=== PATIENT | male | born 1950 | race Caucasian/White ===

== ENCOUNTER 2020-01-31 17:26 | Inpatient (IN) | payer OTHER, BC ==
[~2020-01-31] VITALS: Ht 177.8 cm; Wt 100.3 kg
--- NOTE | ~2020-01-31 | D ---
[facility] [place] [address] DISCHARGE SUMMARY Name: RUBEN CAR Room #: 519A-A [facility] IN M.R.#: [id number] Admission: 01/31/20 Attend Phys: Blaise Eduardo DO Discharge: 02/20/20 Date of : 46 Report #: [id number] THIS REPORT FOR: cc: LORY - Kelsey family physician/PCP LORY - No family physician/PCP Blaise Eduardo DO ~ THIS REPORT FOR: //name// CC: Blaise HENLEY physician/PCP DATE OF SERVICE: 02/20/2020 INPATIENT PSYCHIATRIC DISCHARGE SUMMARY ATTENDING PHYSICIAN: Blaise Eduardo DO RESIDENT CARE MANAGER AT THE TIME OF DISCHARGE: Deloris Bettencourt M.D. DISCHARGE DIAGNOSES: Includes: 1. 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 2. Idiopathic Parkinson's disease. ADDITIONAL DIAGNOSES: 1. Medically would be hypertension. 2. Chronic kidney disease, stage 3. 3. Osteoarthritis. 4. Weakness, likely from Parkinson disease. DISCHARGE PLAN: The patient is discharged to [facility]. Psychiatric medical care to be provided by receiving facility. DISCHARGE DIET: Regular. ACTIVITY LEVEL: As tolerated. The patient does require 24/7 care and assistance due to ____ elopement risk. DISCHARGE MEDICATIONS: Are as follows: Tamsulosin 0.8 mg p.o. daily for BPH, Lovenox 40 mg subcutaneous at bedtime for prevention of deep venous thrombosis, atorvastatin 40 mg p.o. at bedtime for hyperlipidemia, Coreg 25 mg p.o. b.i.d. for hypertension, hold if systolic blood pressure is less than 100, amlodipine 5 mg p.o. b.i.d. for hypertension, again hold again hold if BP is less than 100, Cozaar 50 mg p.o. daily for hypertension, renal protection, aspirin 81 mg oral daily for heart protection, gabapentin 300 mg capsules 3 times a day, we are giving it to him at 9:00 a.m., 3:30 p.m., and 2100 hours for pain and mood [facility] [address] [place] [address] DISCHARGE SUMMARY Name: JOSEPRUBEN Room #: 519A-A [facility] IN [facility].#: [id number] Admission: 01/31/20 Attend Phys: Blaise Eduardo DO Discharge: 02/20/20 Date of : 46 Report #: [id number] stabilization. First antipsychotic he takes quetiapine fumarate, which is Seroquel 62.5 mg orally at 0900, 0330, and 2100 hours. His Sinemet regimen, which I adjusted per Dr. Chepe Branham's instruction is 25/100 ER tabs 2 tabs p.o. at 0800, 1530, 2300 hours. He also should take finasteride 5 mg p.o. daily at noon for BPH. He takes cyanocobalamin, paroxetine, vitamin called Folbee 1 each p.o. daily and multivitamin oral daily. I do not recommend any benzodiazepines for him. I do not recommend resuming Nuplazid. LABORATORY DATA: This admission, most recently on 02/20/2020, hematology: H and H 12.7 and 36.7, white count 9.5, platelets 7.5. Chemistry: Sodium 141, potassium 3.6, chloride 105, bicarbonate 30, anion gap 6, BUN 15, creatinine 1.1, estimated GFR 66, glucose 105, calcium 8.8, phosphorus 3.4, magnesium 2.2, total bilirubin 0.7, AST 20, ALT 6, alkaline phosphatase 78, total protein 6.4, albumin absolutely low at 2.7. Vitamin B12 level high at 191. Urinalysis is negative. Toxicology positive for benzodiazepines on admission. COVID-19 PCR done on 02/19/2020 was negative. REASON FOR ADMISSION: Back in early January is as follows, a 69-year-old male who came from the [facility] due to reported sexual aggressiveness, aggressive behavior, general emotional lability, and hallucinations. HOSPITAL COURSE: The patient was admitted to Geriatric Psychiatry Unit. The patient's daughter, Liya, who was very involved as well as his . The patient is incapacitated for persons with higher level healthcare living decisions. DPOA has enacted. The patient had been on a Nuplazid previously. It was discontinued. Seroquel was started with a slow titration. Spoken to Dr. Chepe Branham, Movement Disorders neurologist. He had been moving him from a variable 4-kqeu-k-day Sinemet regimen to 3 times a day ER. With the antipsychotic, they adjusted Parkinson's medications in the therapeutic milieu, the agitation improved. There was virtually no sexual aggressiveness noted. There was some delay as the family did not want the [facility] setup and wanted more of a larger memory care facility for the ____, so I would say the last week to 10 days or so was working on that, which was eventually achieved. Vital signs on the day of discharge, temperature 36.7, pulse 78, respirations 16, BP 118/72, O2 sat 93%, BMI of 31.7, weight 100.235 kilos, height 177.8 cm. MENTAL STATUS EXAMINATION: This is a well-developed, well-appearing male, not exclusively nonambulatory, but is quite limited. Attention limited. Concentration limited. Speech slow. Mask-like faces. Thought process linear at times. Thought content, poverty of thought. Fairly no psychomotor agitation. Some psychomotor retardation. Denied SI or HI. Denied auditory, visual, or tactile hallucinations. Memory is formally tested and is in the single digit range. Insight impaired, judgment impaired. Fund of knowledge well below average. [facility] [address] [place] [address] DISCHARGE SUMMARY Name: RUBEN CAR Room #: 519A-A DIS IN .R.#: [id number] Admission: 01/31/20 Attend Phys: Blaise Eduardo DO Discharge: 02/20/20 Date of : 46 Report #: [id number] PROGNOSIS: For this patient is guarded to poor given his advanced Parkinson's disease and difficulties accompanying that. By: 1815 12 Blaise Eduardo DO /nt
[2020-01-31 17:29] VITALS: BP 131/78
[2020-01-31 18:13] LABS: ABSOLUTE NEUTROPHILS 4.3 thou/uL (1.4-8.2); BASOPHILS 0.8 % (0.0-2.0); EOSINOPHILS 4.6 % (0.0-3.0); HEMATOCRIT 39.9 % (42.0-52.0); HEMOGLOBIN 13.9 gm/dL (14.0-18.0); LYMPHOCYTES 19.9 % (24.0-44.0); MCH 30.7 pg (26.0-34.0); MCHC 34.8 g/dL (28.0-37.0); MCV 88.2 fL (80.0-100.0); PLATELET COUNT 193 thou/uL (150-400); POLYS 67.7 % (36.0-66.0); RBC 4.52 mil/uL (4.50-6.00); RDW 13.7 % (10.5-14.5); WBC 6.3 thou/uL (4.0-11.0)
[2020-01-31 18:26] LABS: CALCIUM 8.5 mg/dL (8.5-10.1); CREATININE 1.4 mg/dL (0.7-1.3); POTASSIUM 3.8 mmol/L (3.5-5.1)
[2020-01-31 18:33] LABS: ALBUMIN 3.3 g/dL (3.4-5.0); TOTAL BILIRUBIN 0.7 mg/dL (0.2-1.0); TOTAL PROTEIN 6.2 g/dL (6.4-8.2)
[2020-01-31] MEDS ORDERED: NORVASC 2.5 MG2.5 M1 PO (19:16)
[2020-01-31] MEDS ORDERED: ALPRAZOLAM XR3 MG PO ×2 (19:16→19:33)
[2020-01-31] MEDS ORDERED: CHILDREN'S ASPI81 M1 PO (19:17)
[2020-01-31] MEDS ORDERED: LIPITOR 20 MG T20 M1 PO (19:17)
[2020-01-31] MEDS ORDERED: CARBIDOPA/LEVO PO ×4 (19:18→19:22)
[2020-01-31] MEDS ORDERED: CARVEDILOL25 MG PO (19:23)
[2020-01-31] MEDS ORDERED: DEPLIN PO (19:24)
[2020-01-31] MEDS ORDERED: PROSCAR 5MG TABL5 M1 PO (19:25)
[2020-01-31] MEDS ORDERED: FOLBEE TABLET1 EACH PO (19:26)
[2020-01-31] MEDS ORDERED: NEURONTIN 300M300 M2 PO (19:26)
[2020-01-31] MEDS ORDERED: METFORMIN PO (19:28)
[2020-01-31] MEDS ORDERED: MELOXICAM15 MG PO (19:28)
[2020-01-31] MEDS ORDERED: LISINOPRIL2.5 MG PO (19:28)
[2020-01-31] MEDS ORDERED: SUPER THERAVIT1 EACH PO (19:29)
[2020-01-31] MEDS ORDERED: NUPLAZID34 MG PO (19:29)
[2020-01-31] MEDS ORDERED: REMERON15 M2 PO (19:29)
[2020-01-31] MEDS ORDERED: SEROQUEL 25 MG25 MG PO (19:30)
[2020-01-31] MEDS ORDERED: FLOMAX0.4 MG PO (19:30)
[2020-01-31] MEDS ORDERED: PAIN RELIEVER500 MG PO (19:32)
[2020-01-31] MEDS ORDERED: BRINTELLIX20 MG PO (19:32)
[2020-01-31] MEDS ORDERED: LAXATIVE SUPPOS10 MG RECTAL (19:34)
[2020-01-31] MEDS ORDERED: CARBAMIDE PEROXIDE EA. EYE (19:35)
[2020-01-31] MEDS ORDERED: [UNRECOGNIZED DRUG - OTHER] TOP (19:36)
[2020-01-31] MEDS ORDERED: TROLAMINE TOP (19:36)
[2020-01-31] MEDS ORDERED: GERI-LANTA PO (19:38)
[2020-01-31] MEDS ORDERED: MILK OF MAG PO (19:41)
[2020-01-31] MEDS ORDERED: MECLIZINE HCL25 M1 PO (19:41)
[2020-01-31 20:09] LABS: AMP/METHAMP Negative (Negative); BARBITURATES Negative (Negative); BENZODIAZEPINES POSITIVE (Negative); COCAINE Negative (Negative); METHADONE Negative (Negative); OPIATES Negative (Negative); PCP Negative (Negative)
[2020-01-31 20:10] LABS: URINE BILIRUBIN NEGATIVE (Negative); URINE BLOOD NEGATIVE (Negative); URINE CLARITY CLEAR; URINE COLOR YELLOW; URINE GLUCOSE-RANDOM* NEGATIVE (Negative); URINE KETONES NEGATIVE (Negative); URINE LEUKOCYTES-REFLEX NEGATIVE (Negative); URINE NITRITE-REFLEX NEGATIVE (Negative); URINE PROTEIN (DIPSTICK) NEGATIVE (Negative); URINE SPECIFIC GRAVITY 1.015 (1.005-1.035)
--- NOTE | 2020-01-31 21:27 | NUR ---
Pt admitted to unit from ED @ 2029. [facility] et was assisted to bed by ED staff et this nurse. Pt was extremely unsteady on feet et did not bear weight well. Pt will need to use w/c due to high fall risk. Pt's B/P was elevated in ED et he was given med to decrease. Pt's B/P upon arrival was 190/97 but has gone down now to 144/83. Health assessment with no abnormalities noted at present time. Pt was admitted for physical aggression, depression, threatening, and exit-seeking behaviors. No behaviors noted or reported from ED or from admission to unit. Pt currently resting in bed with eyes closed. Will continue to monitor per protocol.
[2020-02-01 01:07] VITALS: BP 144/83
--- NOTE | 2020-02-01 05:29 | NUR ---
Pt admitted to unit @ 2029 this shift. Pt calm et cooperative at admission. Became restless throughout the noc et called out for daughter several times. Pt continues to be confused et is currently oriented to person only. Pt used the urinal with assistance through the noc. Denies SI/HI. Currently resting in bed with eyes open. Will continue to monitor per protocol.
[2020-02-01 07:40] VITALS: BP 136/81
--- NOTE | 2020-02-01 08:17 | EKG ---
[facility] [place] [address] [place] [address] ELECTROCARDIOGRAM REPORT Name: RUBEN CAR Room #: [facility]-A ADM IN M.R.#: [id number] Admission: 01/31/20 Attend Phys: Blaise Eduardo DO Discharge: Date of : 46 Report #: [id number] THIS REPORT FOR: cc: LORY - No family physician/PCP LORY - No family physician/PCP Bridger Pastrana MD [facility] ~ THIS REPORT FOR: //name// [facility] ED Test Date: 2020-01-31 Test Time: 17:53:33 Pat Name: RUBEN CAR Department: Room: [facility] Gender: M Supervisor Contact Lens: yoselin : 1950 Requested By: Rodolfo Hutchinson Order Number: [id number] MD: Bridger Pastrana Measurements Intervals [place] Rate: 74 P: 33 PA: 158 QRS: 4 QRSD: 107 T: -11 QT: 389 QTc: 432 Interpretive Statements Sinus rhythm Ventricular premature complex Borderline T abnormalities, inferior leads Baseline wander in lead(s) V4 No previous ECG available for comparison Electronically Signed On 02-01-2020 8:16:38 CDT by Bridger Pastrana [email or web address] <ELECTRONICALLY SIGNED> By: Bridger Pastrana MD, [facility] 02/01/20 0816 1753 1753 Bridger Pastrana MD, [facility] /EPI
--- NOTE | 2020-02-01 09:37 | NUR ---
Sw attempted to speak with pt s DPALIZE Nickerson [phone] and there is no VM set up. Will try again later.
--- NOTE | 2020-02-01 10:48 | NUR ---
Pt's dght called back and left a VM Liya's number is [phone]. And his other [facility] Vidhya is [phone]. Jaylen spoke with Liya and set up a family meeting for 11:[address] tinoco
--- NOTE | 2020-02-01 12:53 | NUR ---
Graciela and Dr tinoco met [facility] liya at 11:30am. Dr tinoco provided an update. GRACIELA completed the intake assessment and TP. Liya provided phone number s for Dr Branham's nurse [phone] Wilfred Hernandez [phone]. Pt is expected to d/c back to [facility].
--- NOTE | 2020-02-01 17:32 | NUR ---
PATIENT WAS UP IN W/C IN DAYROOM WHEN CARE ASSUMED. PATIENT IS VERY CONFUSED, ORIENTED TO SELF ONLY. HE TOOK ALL MEDICATIONS WHOLE WITHOUT DIFFIFULTY. PATIENT IS EATING MEALS, AND DRINKING FLUID WELL. PATIENT DENIES SUICIDAL IDEATION, HE IS NOT COGNITIVE ENOUGH TO APPROPRIATELY RESPOND TO ASSESSMENT QUESTIONS DUE TO COGNITIVE IMPAIRMENT. PATIENT HAD A NON-INJURY FALL WHILE AMBULATING ON THE [facility]. ALL APPROPRIATE AURTHORITIES NOTIFIED BY STAFF. NO BRUISING , OR REDNESS NOTED. PATIENT IS PLACED ON 1:[address] JOHNSON. PATIENT IS CURRENTLY IN DAYROOM SITTING ON A WHEELCHAIR, CHAIR ALARM, LAPBUDDY, YELLOW SOCKS, AND YELLOW T-SHIRT IN PLACE. PATIENT DENIES HAVING PHYSICAL PAIN. AFFECT IS FLAT/ LUNTED, MOOD CALM. NO AGITATION OR AGGRESSIVE BEHAVIOR NOTED. PATIENT'S FACILITY BROUGHT SOME MEDICATION, MEDICATION LISTED ON THE PHARMACY BAG BY STAFF, AND SENT TO PHARMACY. NO SIGN OF ACUTE DISTRESS NOTED AT THIS TIME, WILL MONITOR FOR SAFETY.
[2020-02-01 20:50] VITALS: BP 154/99
--- NOTE | 2020-02-02 03:50 | NUR ---
02-01-20 CARE TRANSFERED 1914 OBSERVED PT IN DAY ROOM WITH 1:1 ORNAMENTAL METAL ERECTOR SITTING IN RECLINER WITH EYES OPEN, CALM. 2009 PT AAOX2, PT REMAINED CALM AND COOPERATIVE DURING NURSING ASSESSMENT. PT REPORTED HE WANTS TO GO HOME. PT DENIES SI/SH/HI/VAH. PT REPORTS BI-LAT LE PAIN SCALES AT 7 ON 0-10 SCALE. PT PAIN REASSES AND PT REPORTS 3 ON 0-10 SCALE. LATER ASSISTED PT INTO BED, AND POSITION OF COMFORT. DURING NURSING ROUNDS NOTED PT SUPINE RESTING WITH EYES CLOSED. OF NOTE, PLEASE REFER TO NURSING INTERVENTIONS FOR MORE INFORMAITON. ZERO ACUTE DISTRESS NOTED. WILL CONTINUE TO MONITOR PER PROCOTOL
[2020-02-02 07:15] VITALS: BP 153/87
--- NOTE | 2020-02-02 09:47 | NUR ---
0700 ASSUMED CARE OF PATIENT, PATIENT SITTING IN DAYROOM. PATIENT IS A 1:1 AND SITTER IS WITH HIM. PATIENT IS CALM AND COOPERATIVE. PATIENT EATING BREAKFAST WITH ASSISTANCE. MEDICATION TAKEN WHOLE WITHOUT DIFFICULTY. PATIENT SAT IN DAYROOM LISTENING TO GROUP. PATIENT ATTEMPTING TO GET UP ALONE, SITTER AT SIDE AND PATIENT SITS BACK DOWN. WILL CONTINUE TO OBSERVE.
--- NOTE | 2020-02-02 13:27 | NUR ---
PATIENT RESTING IN AGATHA CHAIR WITH EYES CLOSED, NO C/O PAIN, LUNG SOUNDS CLEAR, BS ACTIVE. PATIENT SITTING NEAR AREA OF CURRENT GROUP. PATIENT IS MOVING HAND AND MUMBLING WORDS TO THE CURRENT SONG BEING PLAYED. PATIENT ENJOYING MUSIC. PATIENT CALM AND COOPERATIVE. DENIES SI/HI. WILL CONTINUE TO OBSERVE
--- NOTE | 2020-02-02 14:04 | NUR ---
PATIENT REQUEST TO USE THE RESTROOM. ASSIST X2 TO BR, PATIENT WAS NOT ABLE TO VOID ATTHIS TIME. PATINT AMB BACK TO CHAIR FROM TOILET WITH ASSIST X2 AND GUIDANCE TO LIFT FEET TO WALK. PATIENT WOULD CLOSE EYES AND STOP MOVING FORWARD. PATIENT CALLING OUT MOTHERS NAME LOOKING FOR HIS MOTHER. LINING STRAP CLOSER ORIENTS PATIENT TO ENVIROMENT. PATIENT ALERT AND ORIENTED X1 TO SELF. PATIENT RESTING WITH EYES CLOSED IN AGATHA CHAIR.
--- NOTE | 2020-02-02 15:51 | NUR ---
Sw provided update over the telephone and sent FAX updates. Pt will likely be ready to d/c next week. Pt has a 1:1 for falls right now
--- NOTE | 2020-02-03 02:32 | NUR ---
02-02-20 CARE TRANSFERED AT 191 OBSERVED PT SITTING IN DAY ROOM WATCHING TV. 1954 PT AAOX3, TREMORS NOTED IN UE. PT CALM AND COOPERATIVE DURING NURSING ASSESSMENT. PT DENIES ANY PAIN AND SI/SH/HI/VAH AT THIS TIME. PT IS A X2 ASSIST AND APPROXIMATEL 2200 ASSISTED PT TO TOLIET, LARGE FORMED, BROWN BM WITH YELLOW URINE, THEN ASSISTED PT INTO CLEAN BRIEFS AND PT REQUESTED TO GET INTO BED. PT WAS PLACED IN POSITION OF COMFORT. APPROXIMATELY 2330 PT CALLING OUT TO HIS MOTHER, WHEN ORIENTATED PT TO WERE HE WAS PT STATED "I'am going to in here." PT WAS REASSURED THAT HE WAS GOING TO BE ALRIGHT AND PT REQUESTED TO GO TO DAY ROOM. APPROXIMATELY 0000 NOTED PT RESTING IN RECLINER WITH EYES CLOSED IN DAY ROOM. OF NOTE, PLEASE REFER TO NURSING INTERVENTIONS FOR MORE INFORMATION. ZERO S/S OF ACUTE DISTRES NOTED. WILL CONTINE TO MONITOR PER [facility] PROTOCOL.
[2020-02-03 08:35] VITALS: BP 155/98
--- NOTE | 2020-02-03 10:07 | NUR ---
0700 ASSUMED CARE OF PATIENT, PATIENT SITTING IN DAYROOM IN AGATHA CHAIR AT THAT TIME. PATIENT DOES NOT HAVE CHAIR ALRM IN PLACE PRODUCTION MAINTENANCE TECHNICIAN WILL GET THAT PUT ON. PATIENT HAS YELLOW SHIRT AND 1:1 REFRACTORY TILE HELPER AT CHAIR SIDE. PATIENT ASSISTED WITH BREAKFAST. MEDICATIONS TAKEN WHOLE WITHOUT DIFFICULTY. NO C/O PAIN, DENIES OTHER NEEDS AT THAT TIME. PATIENT ASSISTED TO RESTROOM BY 1:1 REFRACTORY TILE HELPER. PATIENT CALM AND COOPERTIVE. CHAIR ALARM PLACED UNDER PATIENT. 1010 PATIENT SITTING ON COUCH WITH EYES CLOSED WITH 1:1 SITTER. WILL CONTINUE TO OBSERVE.
--- NOTE | 2020-02-03 12:01 | NUR ---
Jaylen scheduled a family meeting using Zoom and provided Liya with a invite and link.
--- NOTE | 2020-02-03 13:35 | NUR ---
Graciela spoke with Liya and provided her with the linkk for the Zoom meeting. We spoke wabout the expectations of d/c and the concenrs xochitl alternate placement might be needed. GRACIELA provided her with education, support and resources to look for alterbate placement. Pt is still expected to d/c back there on Thu. GRACIELA then called and left a VM with Michaela GUTIERREZ at [facility] asking for a conference all with Liya and Graciela to discuss the needs of the pt.
--- NOTE | 2020-02-03 16:32 | NUR ---
Jaylen spoke with Virgil and discussed the d/c plans for next week. Jaylen also sent her an invitation to the Zoom meeting on Thursday at 10:30 am.
[2020-02-03 19:37] VITALS: BP 185/95
--- NOTE | 2020-02-04 05:07 | NUR ---
Assumed care of pt @ 1900. Pt calm et cooperative with flat affect this shift. Took medications whole without difficulty. Did not ambulate this shift but normally ambulates with assistance of walker. Socialized with peers in dayroom most of shift. B/P mildly elevated at beginning of shift but recheck was WNL. Health assessment with no abnormalities noted @ present time. Denies SI/HI. Currently resting in recliner in dayroom with eyes closed. Will continue to monitor per protocol.
[2020-02-04 05:54] LABS: ALBUMIN 3.6 g/dL (3.4-5.0); CALCIUM 9.4 mg/dL (8.5-10.1); CREATININE 1.6 mg/dL (0.7-1.3); PHOSPHORUS 4.1 mg/dL (2.5-4.9)
[2020-02-04 08:17] VITALS: BP 172/103
--- NOTE | 2020-02-04 09:18 | NUR ---
ASSUMED CARE AT 0700 THIS MORNING. PT. UP, DRESSED AND SITTING AT THE TABLE IN THE DINING ROOM HAVING COFFEE. HE APPEARS CONTENT. NO AGGRESSION NOTED. HE ATE BREAKFAST. HE TOOK HIS MEDICATIONS WITHOUT PROBLEMS NOTED. CALLED THE DPDOMENIC HERRMANN (DAUGHTER) TO INFORM HER WE NEEDED MORE TRINTILLEX. SHE STATED SHE WOULD WORK ON THAT.
[2020-02-04 10:54] VITALS: BP 172/103
[2020-02-04 13:14] VITALS: BP 144/86
[2020-02-04 20:11] VITALS: BP 141/86
--- NOTE | 2020-02-05 05:25 | NUR ---
Assumed care of pt @ 1900. Pt calm et cooperative with pleasant demeanor this shift. Pt talked with at beginning of shift et when asked if conversation went well, pt stated "no". When prompted further, pt did not respond. Took medications whole without difficulty. Ambulates halls with assistance of w/c. DAWNWOLI. Health assessment with no abnormalities noted at present time. Denies SI/Hi. Socialized with peers in dayroom until HS. Currently resting in recliner in dayroom with eyes closed. Will continue to monitor per protocol.
[2020-02-05 08:50] VITALS: BP 178/95
--- NOTE | 2020-02-05 13:32 | NUR ---
Mike was in the day room sleeping when I arrived on duty this AM. He awoke for breakfast amd ate a good potion of this meal. Meications were taken with apple sauce, all were taken. When Robert is asked a question his respons does not relate to matter at hand . He is alert x1 Lungs were clear x2 pedal pluse strong and equal. heart rate regular. All of his lunch was eaten. Robert had a call and had a very short conversation with them. Pt remains in the day roon in lougchair sleeping at this time.
[2020-02-05 13:48] VITALS: BP 178/95
[2020-02-05 13:58] VITALS: BP 178/95
--- NOTE | 2020-02-05 16:38 | NUR ---
Pt unable to participate in group due to cognitive deficit.
--- NOTE | 2020-02-05 18:34 | NUR ---
WHILE ATTEMPTING TO CHANGE THIS PT. THE SECOND TIME, HE STOOD UP AND STATED, "DO YOU WANT ME TO PUT IT IN?" THIS RN INFORMED HIM THIS WAS INAPROPRIATE.
[2020-02-05 19:20] VITALS: BP 181/90
[2020-02-05 21:00] VITALS: BP 181/90
--- NOTE | 2020-02-05 23:19 | NUR ---
Patient has become increasingly anxious. Stating "I'm just going to kill myself", "let me jump", "I'm going to hell". Attempting to disrobe, kicking legs, swinging arms. Did answer that he was anxious. Staff attempted to calm patient down x3. Offered water. Patient crushed the cup with his hand and refused to let go. PEDRO Ramirez, notified. Order obtained for Olanzapine 5mg IM stat. Medication administered with staff assist x3. Remains 1:1 while awake.
--- NOTE | 2020-02-06 03:02 | NUR ---
Assumed care of patient this pm shift. Patient sitting in the mileu in a reclining chair on 1 to 1 observation while awake. Patient appears confused and has difficulty answering basic questions. Patient is very sleepy at the start of the shift but as time went on he become more wakeful and increasingly anxious and agitated. Patient stated that he wants to go to hell and that he would jump. Patient redirected several times but agitation still increased. Nurse practitioner was called and patient recieved an IM injection to help relieve the anxiety. Patient is alert only to self. Patient denies pain. Patients assessment shows clear breath sounds, active bowel sounds, and s1 s2 heard with auscultation. We will continue with close observation.
[2020-02-06 06:31] LABS: CALCIUM 9.2 mg/dL (8.5-10.1); CREATININE 1.4 mg/dL (0.7-1.3); POTASSIUM 4.2 mmol/L (3.5-5.1)
[2020-02-06 07:20] VITALS: BP 171/93
--- NOTE | 2020-02-06 10:25 | NUR ---
Ignacio was in day room sleeping when I arrived on duty. Staff awoke him for Breakfast of which he ate most of it. Medications were given in apple sauce ,only the flow max was spit out and I was able to open the caplsel and give the dose as ordered in apple saucw. Robert is very easily angered and tries to strick back . His conversation to you is regarding s thought unrelated to the issue at hand. He remains 1:1 with lap marisol on. Lungs are clear x2, pedal pulse strong ,no edema at this time and heart sound normal. Appite is good, staff will regualarly check about voiding and bm's
[2020-02-06 19:15] LABS: URINE BILIRUBIN NEGATIVE (Negative); URINE BLOOD NEGATIVE (Negative); URINE CLARITY CLEAR; URINE COLOR YELLOW; URINE GLUCOSE-RANDOM* NEGATIVE (Negative); URINE KETONES NEGATIVE (Negative); URINE LEUKOCYTES NEGATIVE (Negative); URINE NITRITE NEGATIVE (Negative); URINE PROTEIN (DIPSTICK) NEGATIVE (Negative); URINE SPECIFIC GRAVITY 1.025 (1.005-1.035)
[2020-02-06 22:00] VITALS: BP 181/90
--- NOTE | 2020-02-07 02:42 | NUR ---
Assumed care of patient this pm shift. Patient sitting in the mileu. Patient speaks about things that may be from his past. Patient denies pain. Patient denies hi/si. Patients called during the evening and spoke with RN. RN spoke with patient and told him his had called and this seemed to make him happy. Patients affect is blunted. Patients assessment shows clear breath sounds, active bowel sounds, and s1 s2 heard with auscultation. Patient is not continent of bowel and bladder and wears a brief. Patient is alert and oriented to self only. We will continue to monitor per hospital policy.
[2020-02-07 09:05] VITALS: BP 102/59
[2020-02-07 10:51] VITALS: BP 181/87
[2020-02-07 10:59] VITALS: BP 181/87
[2020-02-07 11:04] VITALS: BP 187/87
--- NOTE | 2020-02-07 11:13 | NUR ---
1110 RESUMMED CARE FROM OVERNIGHT SHIFT THIS AM, PATIENT SOUND ASLEEP IN ROOM. PATIENT WAS NOT EASY TO AROUSE AND ATE BREAKFAST A LITTLE LATE. PATIENT TOOK MEDICATION WITHOUT INCIDENCE. PATIENTS ABDOMEN SOFT ROUND BOWEL SOUNDS PRESENT LUNGS CLEAR. PATIENT HAS A TREMOR IN RT HAND PATIENT IS ORIENTED TO SELF ONLY. PATIENT DENIES SI/HI/AH/VH AT PRESENT, PATIENT IS COOPERATIVE CALM PATIENT HAD A EPISODE OF ENURESIS THIS AM. WILL CONTINUE TO MONITOR PATIENT FOR SAFETY AND BEHAVIORS.
--- NOTE | 2020-02-07 11:58 | NUR ---
GRACIELA and Dr Eduardo met with family via virtual. Dr Eduardo reported on meds and meds change recomendations. This inlcuded concerns that [facility] may not be able to manage this pt in the future. GRACIELA sent a referra to [facility] per their erquest and followed it up with a phone call to Ly their intake [phone]. Family also reported that they will be looking into alternate placement per their own contacts and then emailing this worker with the names so the referral can be sent .
--- NOTE | 2020-02-07 15:03 | NUR ---
RT Progress Note- Mike' participation in the milieu and group activities remains limited d/t his impulsive behaviors and cognitive deficits. He has however been able to focus for extremely short periods- listening to music and ball kick.
[2020-02-07 19:34] VITALS: BP 83/39
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
--- NOTE | 2020-02-08 05:25 | NUR ---
Assumed care of pt @ 1900. Pt calm et cooperative this shift. No behaviors noted. Took medication whole in yogurt without difficulty. Ambulates with assistance of w/c. B/P very low this shift so B/P meds held per parameters. Pt was sedated for 0330 med so was marked as refused as unable to awaken to take his medication. Health assessment with no abnormalities noted at present time. Denies SI/HI but unsure as to if pt was completely understanding what was asked of him. Currently resting in bed with eyes closed. Will continue to monitor per protocol.
[2020-02-08 07:30] VITALS: BP 150/98
--- NOTE | 2020-02-08 13:07 | NUR ---
Jaylen received a VMa nd email from Liya vazquez and she requested that the referral be sent to [facility]. JAYLEN completed this task and emailed Liya a confirmaiton.
--- NOTE | 2020-02-08 13:52 | NUR ---
Mike , was siting up in chair when I arrived on duty this Am. Pt is more responsive, when spoken to with eyes open. alert x1, heart sound s clear and regular. Pedal pulse strong and no edema noted. Pt has not had a bm to day. client has earten ALL his food. nO OMPLAINTS VOICED AT THIS TIME.
[2020-02-08 19:55] VITALS: BP 140/74
[2020-02-08 20:30] VITALS: BP 140/74
--- NOTE | 2020-02-09 00:38 | NUR ---
PATIENT SAT UP IN WC AT TABLE IN DINING ROOM TONIGHT UNTIL BEDTIME. HE SPOKE WITH HIS ON PHONE. HE HAS BEEN CALM AND LESS IMPULSIVE TONIGHT. HE DID HAVE HS SNACK. NO SIGNS OF SI/HI/AVH TONIGHT. PATIENT IS A/O X 1-2. HE TOOK HIS MEDS CRUSHED IN PUDDING. HE DENIES PAIN. BED IN LOW POSITION AND BED ALARM IS ON. CONTINUING TO MONITOR.
[2020-02-09 10:01] VITALS: BP 145/83
--- NOTE | 2020-02-09 10:34 | NUR ---
GRACIELA spoke with [facility] and they are willing to consider this pt for placement. This should be for early next week. Expectations include no 1:1. no lap marisol and taking medications orally. GRACIELA johnson send updates on Thursday and f/u with [facility] Thursday.
--- NOTE | 2020-02-09 11:48 | NUR ---
Nutrition: Assessed for early day 6 LOS. Pt unavailable at time of visit to unit. Getting cleaned up/changed by METAL FABRICATION SUPERVISOR. Chart reviewed, noted to be A&O x1-2. Here for dementia w/ increased behavioral disturbances, psychosis. On a regular diet and eating well. Typically eating 75-100% of most meals, with a few at lower amounts of 30-60%. Overall, pt averaging 2/3 of meals per the last 19 recordings (only 1 meal refusal out of 19). On a MVI w/ minerals, B12, and folic acid supplementation. Last BM not documented since 02/03. REC adding scheduled bowel regimen. No other active nutrition problems identified. Deemed low nutrition risk, continue to follow for any changes in po trends.
--- NOTE | 2020-02-09 12:17 | NUR ---
0700 ASSUMED CARE OF PATIENT. PATIENT IN ROOM AT THAT TIME. 0800 PATIENT TO DAYROOM SITTING IN GERICHAIR. PATIENT WEARING YELLOW SHIRT, FALLS ARM BAND ON, YELLOW SOCKS IN PLACE. CHAIR ALARM NOT IN PLACE AND NO ALARM BOXES ARE AVAILABLE. PATIENT DENIES NEEDS AT THAT TIME. 0845 MEDICATION TAKEN WHOLE WITHOUT DIFFICULTY. PATIENT AWAKE AND ALERT. ORIENTED X1. PATIENT SITTING IN GERICHAIR AT THAT TIME. PATIENT DENIES SI/HI. NO GOAL VOICED, NO CONCERNS VOICED. WILL CONTINUE TO OBSERVE.
--- NOTE | 2020-02-09 15:49 | NUR ---
GRACIELA spoke at length with Liya this am to melinda d/c planning. It was decided that they like [facility] and that d/c would likely be next week and the expectations. Liya reported that she was very staisfied with this outcome.
[2020-02-09 19:36] VITALS: BP 117/70
[2020-02-09 20:40] VITALS: BP 117/70
--- NOTE | 2020-02-10 01:47 | NUR ---
PATIENT WAS QUIET IN DAYROOM BEFORE BED. HE HAD HS SNACK AND SAT AT TABLE IN HIS WC WITH CHAIR ALARM ON. PATIENT SPOKE TO HIS BY PHONE. HE IS A/O X 1. HE WAS ABLE TO ANSWER SIMPLE QUESTIONS FOR ME. HE DENIES PAIN. PATIENT TOOK MEDS CRUSHED IN YOGURT. PATIENT HAS AWAKENED CONFUSED 3 TIMES SO FAR TONIGHT. HE THINKS IT'S TIME TO GET UP AND GET DRESSED. HE USED BSC AND BACK TO BED BUT STILL CALLS OUT FOR HELP PERIODICALLY. PATIENT IS UP IN RECLINER AND MOVED TO DAYROOM AT THIS TIME. HE DENIES SI/HI/AVH. ROUTINE ROUNDS FOR STATUS AND SAFETY OF PATIENT.
--- NOTE | 2020-02-10 05:33 | NUR ---
PATIENT HAS BEEN UP HALF THE NIGHT SITTING ON CHAIR ALARM IN RECLINER IN THE DINING ROOM QUIETLY. OCCASIONALLY HE WILL TRY AND INSERT A RANDOM COMMENT INTO A CONVERSATION. HE HAS BEEN TOILETED THRU NIGHT AND IS INCONTINENT. PATIENT DENIES PAIN. A/0X1. ROUTINE ROUNDING TO ASSESS FOR SAFETY AND STATUS OF PATIENT.
[2020-02-10 07:56] VITALS: BP 151/100
--- NOTE | 2020-02-10 09:35 | NUR ---
0700 ASSUMED CARE OF PATIENT, PATIENT SITTING IN GERICHAIR IN DAYROOM AT THAT TIME. PATIENT DENIES NEEDS. AFTER BREAKFAST PATIENT SITTING IN CHAIR WAITING FOR GROUP TO START. MEDICATION TAKEN WHOLE WITHOUT DIFFICULTY, NO C/O PAIN. PATIENT SITTING QUIETLY AND CALLS OUT FOR . UNION ORGANISER ORIENTS PATIENT TO ENVIROMENT. PATIENT IS CALM AND COOPERATIVE.
[2020-02-10 19:36] VITALS: BP 151/77
--- NOTE | 2020-02-11 05:26 | NUR ---
Assumed care of pt @ 1900. Pt calm et cooperative this shift. Took medications whole in yogurt without difficulty. Ambulates via w/c. Socialized with peers in dayroom until HS. VSWNL. Health assessment with no abnormalities noted at present time. Denies SI/HI. Talked with on phone during shift et appeared to have a good conversation. Pt very lucid while on the phone with . Currently resting in bed with eyes closed. Will continue to monitor per protocol.
[2020-02-11 08:21] VITALS: BP 148/92
--- NOTE | 2020-02-11 10:04 | NUR ---
0700 ASSUMED CARE OF PATIENT, PATIENT SLEEPING IN BED AT THAT TIME. PATIENT TRANSFERED TO [facility] FOR BREAKFAST AND TAKEN TO DAYROOM. PATIENT AWAKE AND ALERT. ORIENTED X1. MEDICATION TAKEN WHOLE WITHOUT DIFFICULTY. PATIENT SITS QUIETLY AT TABLE. DENIES NEEDS AT THIS TIME.
[2020-02-11 19:48] VITALS: BP 125/77
--- NOTE | 2020-02-11 23:50 | NUR ---
Pt was in the dayroom at time of assessment. Pt oriented to self. Confused. Pt was calm and cooperative with assessment. Pt denies anxiety and/or depression. Pt took meds whole. Pt incontinent of bladder. Wears briefs. Pt is 2 person's assist. Pt currently in bed sleeping. Will continue to monitor.
[2020-02-12 09:06] VITALS: BP 167/91
--- NOTE | 2020-02-12 11:40 | NUR ---
Assumed care 0700. Denied complaints. Assisted to dining room bearing some weight in [facility]. Self feeds once food is cut up. Denies SI/HI/AH/VH.
--- NOTE | 2020-02-12 16:30 | NUR ---
called, given update, said daughter was to call him around dinnertime. He did have awareness that this was Father's Day. 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 He was reoriented that he was in the hospital but not totally convinced he was not going to work. He had an extra large BM several pounds worth.
[2020-02-12 19:58] VITALS: BP 173/79
[2020-02-13 07:15] VITALS: BP 149/92
[2020-02-13 10:14] VITALS: BP 147/92
[2020-02-13 10:31] VITALS: BP 149/92
--- NOTE | 2020-02-13 12:49 | NUR ---
GRACIELA spoke with Deidre Ferris at [place]. Renae inquired it Pt was still recieving a 2 person assist. GRACIELA confrimed that Pt does recieve a 1 to 2 person assist depending on the day. [facility] stated that could not accept Pt and Pt needs to make more progressive before they could accept. GRACIELA and Dr. Hayes contacted Pt's daughter/DPOA concerning the matter. Gave infomation about [facility] declining the Pt due to Pt needing 2 person assit at times. Family requested referals be sent to [facility].
[2020-02-13 13:18] LABS: CALCIUM 9.1 mg/dL (8.5-10.1); CREATININE 1.4 mg/dL (0.7-1.3); POTASSIUM 4.2 mmol/L (3.5-5.1)
--- NOTE | 2020-02-13 14:42 | NUR ---
1400 RESUMMED CARE THIS AM FROM OVERNIGHT SHIFT THIS AM, PATIENT QUIET IN ROOM. I GOT PATIENT UP DID HYGIENE AND TOOK PATIENT TO EAT BREAKFAST. PATIENT TOOK MEDICATION WITHOUT INCIDENCE. PATIENTS ABDOMEN SOFT ROUND BOWEL SOUNDS PRESENT LUNGS CLEAR. PATIENT DENIES SI/HI/AH/VH AT PRESENT PATIENT QUIET COOPERATIVE ORIENTED TIMES SELF ONLY. WILL CONTINUE TO MONITOR PATIENT FOR SAFETY AND BEHAVIORS.
--- NOTE | 2020-02-13 17:35 | NUR ---
GRACIELA sent referral to [facility]
--- NOTE | 2020-02-14 04:45 | NUR ---
02-13-20 CARE TRANSFERED AT 1915 OBSERVED PT SITTING IN DAY ROOM. 1999 PT PRESENTS TEARFUL AND ANXIOUS WAS ABLE TO COMFORT AND PT COOPERATIVE DURING NURSING ASSESSMENT. PT VSS RR EVEN AND NONLABORED ON RA. PT DENIES SI/SH/HI/VAH. PT REPORTS PAIN IN LOWER BACK SCORES AT 7. OF NOTE, PLEASE REFER TO NURSING INTERVENTIONS AND MAR FOR MORE INFORMATION. ZERO ACUTE MEDICAL OR EMOTIONAL DISTRESS NOTED AND WILL CONTINUE TO MONITOR PER [facility].
[2020-02-14 08:40] VITALS: BP 136/82
--- NOTE | 2020-02-14 08:46 | NUR ---
PT SITTING IN DINING ROOM. PT TOOK AM MEDS WITHOUT ANY ISSUES. PT TEARFUL THIS AM STATED HE DOESN'T HAVE ANY PAIN EXCEPT HIS HEART, HE STATED HE MISSES HIS FRIENDS. PT NEEDS ASSISTANCE WITH TRANSFERS. PT DOES STAND AT TIMES IN W/C. PT EASILY DIRECTED TO SIT BACK DOWN.
--- NOTE | 2020-02-14 10:20 | NUR ---
SW successfully faxed referrals to [facility] and updates to [facility].
--- NOTE | 2020-02-14 10:30 | NUR ---
CALLING AND WANTING TO TALK TO PT. PT DID TALK WITH HER ON THE PHONE, PT UNALBE TO HOLD PHONE TO HIS EAR, THIS SLITTING MACHINE FEEDER PLACED PHONE OVER HIS EAR SO HE COULD COMMUNICATE WITH HER.
--- NOTE | 2020-02-14 10:44 | NUR ---
RT Progress Note- Robert's participation in structured group time has been minimal d/t cognitive deficits and impulsive fall risk behaviors. He has been present in the milieu and observed working puzzles with staff at times. He does participate primarily in exercise groups when in group attendance. He has not displayed aggressive or agitated behavior during RT interactions.
[2020-02-14 11:35] VITALS: BP 136/82
--- NOTE | 2020-02-14 12:46 | NUR ---
GRACIELA returned the email to Liya Brunson and sent referrals to [facility] and [facility] and updates to [facility]
[2020-02-14 19:37] VITALS: BP 127/81
--- NOTE | 2020-02-14 23:46 | NUR ---
Care assumed of patient at 191: Patient seated in w/c in dayroom at start of shift. Patient alert and oriented to person only. Patient feels that we are at an arcade in [place], [place]. Patient forgetful and confused. Patient presents with flat affect. Appears sad and depressed. Appropriately interacting with staff. Denies SI/HI/AH/VH. Denies anxiety and depression. Spoke with his on the phone and appeared tearful afterwards. Patient states he misses her. Patient took HS medication whole with cup of water. Ate 100% HS snack. No agitation or aggression observed. Patient retired to bed rather late this evening. Patient was able to verbalize to staff when he was ready to lay down in bed. Patient incontinent of bladder. Cooperative with sander care and linen change. Patient was able to stand and transfer from w/c to bed with mod assist x1. Fairly good balance observed. Patient was able to fall asleep rather quickly once laying in bed and is resting quietly at this time.
[2020-02-15 08:20] VITALS: BP 153/91
[2020-02-15 09:19] VITALS: BP 153/91
--- NOTE | 2020-02-15 11:55 | NUR ---
Pt has been accepted at [facility] and will go skilled [facility] to transition. SW is setting this up for 02/16. SW left 2 VM for Farida at [facility].
--- NOTE | 2020-02-15 13:51 | NUR ---
GRACIELA spoke at length with Liya and her spouse about the d/c plans. This included whether pt can see his spouse , GRACIELA advised prince it. and how his transistion will take place. She also asked for a [facility] of HOSPITAL DNR to be scanned to her so she can sign it and have DR Eduardo sign it for kimberly pt d/c on Thursday.
--- NOTE | 2020-02-15 14:03 | NUR ---
Nutrition: Weekly follow up. Continues on a regular diet and eating well. Meal average = 79% per the last 17 recorded meals from 02/09 - 02/14 lunch. He has only refused/not wanted 1 meal during this past week. Has eaten 100% of the last 4/5 meals. Recent BM 02/13; has milk of mag available prn. Pt not interviewed this date given ongoing excellent po trends and noted to be A&O to person only with cognitive deficits/dementia. Weight is down 9# in the last 1.5 weeks from 225# on 01/31 to 216# on 02/10 despite eating adequately. Continues on a MVI w/ minerals, B12, and folic acid. Maintain low nutrition risk. SW secured spot in a memory care unit- discharged planned 02/16.
[2020-02-15 20:15] VITALS: BP 115/70
--- NOTE | 2020-02-16 01:11 | NUR ---
Care assumed of patient at 1915: Patient seated in w/c in dayroom at start of shift. Patient alert and oriented to person only. Patient states that current location is the warehouse. When re-oriented to location as the hospital, he states "oh, yeah". Patient pleasantly confused. No s/s of depression or tearfulness observed. Denies SI/HI/AH/VH. No aggression or agitation observed. Patient ate 100% HS snack. Took HS medication whole without difficulty. Patient was able to speak with his and daughter on the phone during the evening. Patient observed to be smiling but did not converse much. Patient's Marjan stated that he has never been much to talk on the phone. Patient was observed to be grimacing and holding his lower back. Patient did report pain to lower back. Patient provided PRN Tylenol with HS medication. Patient was able to be assisted to bed with mod assist x1 from w/c to bed. Patient incontinent of bladder. Cooperative with sander care and linen change. Patient was able to fall asleep without difficulty. Patient resting quietly at this time.
[2020-02-16 13:32] VITALS: BP 147/87
--- NOTE | 2020-02-16 13:49 | NUR ---
ASSUMED CARE AT 0700 TODAY. PT. GOTTEN UP, DRESSED AND INTO RECLINING CHAIR. HE IS RELATIVELY QUIET, ANSWERING QUESTIONS WHEN HE CAN. HE REMAINS SOMEWHAT CONFUSED. HE WAS COMPLIANT WITH TAKING HIS MEDICATIONS. HE HAS BEEN COOPERATIVE WITH STAFF. PT. HAS BEEN SITTING QUIETLY MOST OF THE DAY. HE WAS INCONTINENT. STAFF TIMES 2 NEEDED TO CHANGE PT. HE WAS COOPERATIVE WITH THAT.
--- NOTE | 2020-02-16 15:10 | NUR ---
GRACIELA spoke to Liya and sent multiple emails about the transision to [facility]. GRACIELA requested a positioning eval for a walker or wheelchair from PT- a recomendation. GRACIELA passed the inforamtion along to Liya via email. It was suggested at this time to have a standard walker with stand by assist and a transporation wheelchair until a more thorough eval with HH can be completed.
[2020-02-16 16:21] VITALS: BP 147/87
[2020-02-16 19:21] VITALS: BP 149/86
--- NOTE | 2020-02-17 01:20 | NUR ---
Care assumed of patient at 1915: Patient seated in w/c in dayroom at start of shift. Patient restless in w/c, reporting pain to his back. Alert and oriented to person only. Patient denied pain and discomfort. Denies SI/HI/AH/VH. Patient pleasantly confused. Patient did ask to lay down rather early this evening. Declined HS snack. Order obtained for scheduled Tylenol due to lower back pain and the diagnosis of osteoarthritis. Patient took HS medication whole with water without difficulty. Patient did report that he was "having a baby" when reporting back pain. Patient stated he needed to have a bowel movement. Patient assisted to bedside commode with mod assist. Patient was able to pass gas but no bowel movement. Last BM 02/15/20. Patient was incontinent of bladder at that time. Cooperative with sander care and linen change. Patient has been able to sleep off and on. Patient waking up and yelling "Marjan" several times. Patient incontinent of bladder x2 thus far this shift. Approximately 1 hour ago, patient started to yell out stating "the baby" was pushing into his left lower abdomen. Patient has a large abdomen which is his baseline. Bowel sounds present x4, soft. Patient denied needing to have a BM. Patient then reported lower back pain due to pressure. Patient repositioned in bed several times. Bladder scanned. Result 201cc. PEDRO [place], notified. Order obtained for stat KUB. No acute abnormalities were found. Patient appears to be anxious due to confusion and when his light is turned off. Patient recently positioned on his left side at which time he was able to fall to sleep rather quickly and has been able to sleep soundly thus far.
[2020-02-17 07:11] VITALS: BP 126/79
--- NOTE | 2020-02-17 12:12 | NUR ---
OBSERVED TO BE RESTLESS AND MILDLY AGITATED THIS AM-WHILE AT BREAKFAST ATTEMPTING TO STAND UP SEVERAL TIMES STATING "COME ON COME ON LETS GO"GIVEN FOOD/FLUIDS/REPOSITIONED FOR COMFORT,TOILETED BUT CONTINUES TO BE RESTLESS-APPEARS TO BE TALKING TO UNSEEN OTHERS "COME ON YOSSI LETS GET GOING" DENIES C/O PAIN/DISCOMFORT. GAIT IS VERY UNSTEADY WILL ATTEMPT TO STAND AND KNEES WILL BUCKEL OR WILL LEAN BACK EXCESSIVLEY. ORIENTED TO NAME ONLY. WAS INCONTINENT OF LARGE SOFT FORMED STOOL X1 THIS AM AND LARGE AMOUNT OF URINE X2. IS COOPERATIVE WITH TAKING MEDICATIONS WHOLE. DELAYED VERBAL RESPONSES AND NOTED EXPRESSIVE APHASIA.
--- NOTE | 2020-02-17 13:44 | NUR ---
aJylen completed the DNR form and faxed this and an updated packet to [facility]. D/C is still expected on Thursday at 2PM. JAYLEN set up trasnportation with [employer].
[2020-02-17 20:00] VITALS: BP 145/77
--- NOTE | 2020-02-18 02:15 | NUR ---
Care assumed of patient at 1915: Patient seated in recliner in dayroom at start of shift. Patient calm, pleasant and cooperative. Alert and oriented to person only. Confused and forgetful. Denies SI/HI/AH/VH. Denies depression and anxiety. Presents with flat affect, does appear to be depressed. Patient asked if is was here. Patient oriented to hospital. did call and patient was able to speak to his on the phone. Patient took HS medication whole without difficulty. Ate 100% HS snack. Patient assisted to bed with staff assist x2. Incontinent of bladder. Cooperative with sander care and linen change. No agitation or aggression observed. Patient was able to fall to sleep without difficulty and has been able to rest quietly thus far this shift.
[2020-02-18 07:50] VITALS: BP 140/76
[2020-02-18 10:06] VITALS: BP 140/76
--- NOTE | 2020-02-18 12:32 | NUR ---
1155 RESUMMED CARE FROM OVERNIGHT SHIFT THIS AM, PATIENT SITTING IN DAY ROOM QUIET. PATIENT ATE BREAKFAST TOOK MEDICATION WITHOUT INCIDENCE, PATIENTS ABDOMEN SOFT ROUND BOWEL SOUNDS PRESENT. PATIENTS LUNGS CLEAR PATIENT DENIES SI/HI/AH/VH AT PRESENT. PATIENTS DAUGHTER CALLED TO CHECK ON PATIENT AND THANKED US FOR TAKING CARE OF HER FATHER. PATIENT QUIET COOPERATIVE NO BEHAVIORS. WILL CONTINUE TO MONITOR PATIENT FOR SAFETY AND BEHAVIORS.
--- NOTE | 2020-02-19 04:39 | NUR ---
Assumed care on 02/18/20 @ 19:15, seated in a chair at a table in the day room facing away from the tv. and daughter both called for an update and spoke to patient. Patient answered orientation question that his name is Khris Chavez, and also said another [place] name. Never would answer what his hame is. HRRR, Lungs cta bilat, abd n x 4 q over a round abdomen.
[2020-02-19 05:36] VITALS: BP 130/69
[2020-02-19 08:58] VITALS: BP 134/72
--- NOTE | 2020-02-19 14:56 | NUR ---
Discussed pt's need for COVID testing prior to discharge with nursing staff and Dr. Villafana.
[2020-02-19 20:09] VITALS: BP 137/77
--- NOTE | 2020-02-19 23:36 | NUR ---
Assumed care on 02/19/20 @ 19:15, in bed, awakens to voice, A&Ox1 answers yes no questions. Reports that this is a medical facility, but denies that it is a hospital. Speaks out saying turn on the lights, when the lights are on. Calls out his 's name. Calls out requesting to "get up and get out of here." Denies pain, HRRR, Lungs CTA, Respirations even and unlabored, no distress noted. Edema +2 noted to lower extremities, Pedal pulses present. Bed in low position, bed alarm set, will continue to monitor q 12 minutes for paitent safety.
[2020-02-20 01:33] VITALS: BP 137/77
[2020-02-20 05:56] LABS: ABSOLUTE NEUTROPHILS 7.5 thou/uL (1.4-8.2); BASOPHILS 0.6 % (0.0-2.0); EOSINOPHILS 2.2 % (0.0-3.0); HEMATOCRIT 36.7 % (42.0-52.0); HEMOGLOBIN 12.7 gm/dL (14.0-18.0); LYMPHOCYTES 11.8 % (24.0-44.0); MCH 30.5 pg (26.0-34.0); MCHC 34.5 g/dL (28.0-37.0); MCV 88.4 fL (80.0-100.0); MONOCYTES 6.5 % (1.0-8.0); PLATELET COUNT 215 thou/uL (150-400); POLYS 78.9 % (36.0-66.0); RBC 4.16 mil/uL (4.50-6.00); RDW 13.3 % (10.5-14.5); WBC 9.5 thou/uL (4.0-11.0)
[2020-02-20 06:26] LABS: ALBUMIN 2.7 g/dL (3.4-5.0); CALCIUM 8.8 mg/dL (8.5-10.1); CREATININE 1.1 mg/dL (0.7-1.3); MAGNESIUM 2.2 mg/dL (1.8-2.4); PHOSPHORUS 3.4 mg/dL (2.5-4.9); POTASSIUM 3.6 mmol/L (3.5-5.1); TOTAL BILIRUBIN 0.7 mg/dL (0.2-1.0); TOTAL PROTEIN 6.4 g/dL (6.4-8.2)
--- NOTE | 2020-02-20 06:37 | NUR ---
Slept for 8.3 hours overnight.
[2020-02-20 07:45] VITALS: BP 118/72
[2020-02-20] MEDS ORDERED: FLOMAX0.4 MG PO (07:47)
[2020-02-20] MEDS ORDERED: ENOXAPARIN40 MG/0.1 SUBQ (07:48)
[2020-02-20] MEDS ORDERED: LIPITOR40 MG PO (07:48)
[2020-02-20] MEDS ORDERED: NORVASC5 MG PO (07:49)
[2020-02-20] MEDS ORDERED: CARVEDILOL25 MG PO (07:49)
[2020-02-20] MEDS ORDERED: COZAAR 50 MG TA50 M1 PO (07:50)
[2020-02-20] MEDS ORDERED: ADULT LOW DOSE81 MG PO (07:50)
[2020-02-20] MEDS ORDERED: NEURONTIN 300M300 M2 PO (07:51)
[2020-02-20] MEDS ORDERED: SEROQUEL 25 MG25 M1 PO (07:51)
[2020-02-20] MEDS ORDERED: CARBIDOPA-LEVO1 EAC8 PO (07:52)
[2020-02-20] MEDS ORDERED: HOME MEDICATION PO (07:53)
[2020-02-20 10:03] VITALS: BP 118/72
--- NOTE | 2020-02-20 11:48 | NUR ---
1115 RESUMMED CARE FROM OVERNIGHT SHIFT THIS AM, PATIENT SITTING IN DAY ROOM WAITING FOR BREAKFAST. PATIENT ATE BREAKFAST TOOK MEDICATION WITHOUT INCIDENCE. PATIENTS ABDOMEN SOFT ROUND BOWEL SOUNDS LUNGS CLEAR, PATIENT DENIES SI/HI/AH/VH AT PRESENT. I TOOK PATIENT DOWN TO RADILOGY FOR LUMBAR SPINE. PATIENT QUIET COOPERATIVE PATIENT IS DISCHARGING TODAY TO [facility]. WILL CONTINUE TO MONITOR PATIENT FOR SAFTEY AND BEHAVIORS.
== END 2020-02-20 14:20 | DRG 885 ==
LOC: ER 17:26 → SBH 19:21 → EROBS 19:21 → SBH 20:22
PROVIDERS: Emergency Medicine; Hospitalist; Internal Medicine; ADMIT Psychiatry & Neurology Psychiatry; ATTEND Psychiatry & Neurology Psychiatry
DX: F29 Unspecified psychosis not due to a substance or known physiological condition (principal); F01.51 Vascular dementia, unspecified severity, with behavioral disturbance; N18.3 Chronic kidney disease, stage 3 (moderate); F02.81 Dementia in other diseases classified elsewhere, unspecified severity, with behavioral disturbance; G20 Parkinson's disease; N40.0 Benign prostatic hyperplasia without lower urinary tract symptoms; M54.9 Dorsalgia, unspecified; G89.29 Other chronic pain; M79.89 Other specified soft tissue disorders; I12.9 Hypertensive chronic kidney disease with stage 1 through stage 4 chronic kidney disease, or unspecified chronic kidney disease; R53.1 Weakness; M19.90 Unspecified osteoarthritis, unspecified site; Z66 Do not resuscitate; Z79.82 Long term (current) use of aspirin; Z79.84 Long term (current) use of oral hypoglycemic drugs; Z79.899 Other long term (current) drug therapy; Z03.818 Encounter for observation for suspected exposure to other biological agents ruled out
CPT/HCPCS: 10880